=== PATIENT | female | born 1960 | race Caucasian/White ===

== ENCOUNTER → 2020-10-18 | Outpatient (REF) ==
--- NOTE | 2020-10-18 14:06 | REP ---
INDICATION: ROTATOR CUFF TEAR COMPARISON: None. TECHNIQUE: Internal rotation, external rotation, and Y view. FINDINGS: Age-related degenerative changes include subtle cortical irregularity at the acromioclavicular joint as well as subtle irregular sclerotic changes to the calcified glenoid rim. The subacromial space is normal. No periarticular calcifications or loose bodies are identified. Humeral head is relatively age-appropriate. No acute fracture or dislocation. IMPRESSION: Age-related degenerative changes <Electronically signed by Cuong Bell > 10/18/20 5509
== END ==
LOC: M PLAIMG 12:04
PROVIDERS: ATTEND Internal Medicine
DX: Z00.00 Encounter for general adult medical examination without abnormal findings (principal)